=== PATIENT | female | born 1990 | race Caucasian/White ===

== ENCOUNTER → 2021-10-23 11:18 | Outpatient (CLI) | payer OTHER, MEDICAID, SELFPAY ==
[2021-10-23 19:07] LABS: HIV 1 & 2 Ab/Ag 4th Gen Combo NEGATIVE (NEGATIVE); Hep C Virus Ab w/Reflex Quant NEGATIVE s/c (NEGATIVE); Hepatitis B Surface Antigen NEGATIVE s/c (NEGATIVE)
[2021-10-24 07:09] LABS: RPR Screen Non Reactive (Non Reactive)
== END ==
PROVIDERS: Family Provider Family Medicine; PCP Pediatrics; Referring Provider Physician Assistant Medical; Visit Provider Physician Assistant Medical
DX: Z01.419 Encounter for gynecological examination (general) (routine) without abnormal findings (principal)
CPT/HCPCS: 36415; 86592; 86803; 87340; 87389

== ENCOUNTER → 2022-05-18 10:47 | Outpatient (CLI) | payer OTHER, MEDICAID, SELFPAY ==
[2022-05-18 12:33] LABS: Free T3, Triiodothyronine Free 4.32 pg/mL (2.77-5.27); Free T4, Direct Thyroxine 1.08 ng/dL (0.78-2.19)
[2022-05-18 12:34] LABS: Vitamin D 25 Hydroxy (D3) 32.8 ng/mL (30.0-100.0)
[2022-05-18 12:47] LABS: Thyroid Stimulating Hormone 1.37 uIU/mL (0.47-4.68)
== END ==
PROVIDERS: Family Provider Family Medicine; PCP Family Medicine; Referring Provider Family Medicine; Visit Provider Family Medicine
DX: E55.9 Vitamin D deficiency, unspecified (principal); R53.83 Other fatigue
CPT/HCPCS: 36415; 82306; 84439; 84443; 84481